=== PATIENT | female | born 1995 | race Caucasian/White ===

== ENCOUNTER → 2018-10-08 | Outpatient (CLI) | payer BC ==
[~2018-10-08] MED LIST: LOR5 PO; NO ROUTINE MEDS.
--- NOTE | 2018-10-08 14:40 | RADIOLOGY IMAGING REPORT ---
FACILITY: [facility] [place] PATIENT NAME: Melina Andrade : 1995 MR: [id number] V: [id number] EXAM DATE: ORDERING PHYSICIAN: ROX BELTRAN TECHNOLOGIST: Location: [facility] Patient: Melina Andrade : 1995 Visit/Account:[id number] Date of Sevice: 10/08/2018 Procedures COMPARISONS: None. ADDITIONAL PERTINENT HISTORY: Low back pain FINDINGS: Vertebral body heights and alignments: Negative. Vertebral bodies: Mild endplate irregularity along the inferior endplate of L3 and along the superior endplate of L5 and inferior endplate of L5 which have a remote appearance. Disc spaces: Negative. Visualized bony pelvis: Negative. Surrounding soft tissues: Negative. IMPRESSION: 1. Remote appearing mild irregularity along the anterior aspects of the endplates at L3 and L5. 2. No acute appearing bony abnormalities. Report Dictated By: Casey Jhonson MD at 10/08/2018 2:34 PM Report E-Signed By: Casey Johnson MD at 10/08/2018 2:36 PM WSN:[id number]
== END ==
LOC: RAD 14:02
PROVIDERS: ATTEND Chiropractor
DX: M54.5 Low back pain (principal)
CPT/HCPCS: 72114